=== PATIENT | female | born 1970 | race Caucasian/White ===

== ENCOUNTER 2024-09-03 15:22 | Inpatient (IN) | payer MEDICAID, OTHER ==
[~2024-09-03] VITALS: Ht 190.5 cm; Wt 125.3 kg
--- NOTE | 2024-09-03 15:51 | ED.PDOC ---
GI ASSESSMENT HPI Comments This is a 54 year old female accompanied by mother presenting to the ED with chief complaint of constipation. Patient reports that she has been constipated for the past week with associated 8/10 abdominal pain, fever, chills, pressure- like dysuria, inability to void completely, and rectal bleeding after attempting to make a bowel movement today. Patient denies any nausea, vomiting, diarrhea, chest pain, SOB, hematuria, flank pain, or dizziness. Chief Complaint: Abdominal Pain Time Seen by MD: 15:46 Reviewed Notes: Nurses Notes, Medications, Allergies Allergies: Coded Allergies: Codeine (Verified Allergy, Unknown, 09/03/24) Information Source: Patient, Relative (Mother) Mode of Arrival: Ambulatory Timing: Days Duration: Since onset Prehospital treatment: None Quality: Aching Vomitus: None Stool: Impaction, Blood Streaked Severity: Moderate Recent: None Recent Hx of: None Pain Location: Diffuse Modifying Factors: Nothing Associated sign and symptoms: Constipation, Abdominal Pain Past Medical History PAST MEDICAL HISTORY: Denies Surgical History: Surgical History (Other): Tummy Tuck, Rt femur surgery, tracheostomy/removal, PEG tube/removal MASTER BLACK BELT History: No Pertinent MASTER BLACK BELT History Family History Family History: Reviewed,noncontributory to illness, Family hx of Cancer Social History Smoker: Non-Smoker Alcohol: Denies ETOH Use Drugs: Marijuana Lives In: Home Constitutional: reports: chills, fever; denies: diaphoresis, fatigue, malaise, sweats, weakness, others EENTM: denies: blurred vision, double vision, ear bleeding, ear discharge, ear drainage, ear pain, ear ringing, eye pain, eye redness, hearing loss, mouth pain, mouth swelling, nasal discharge, nose bleeding, nose congestion, nose pain, photophobia, tearing, throat pain, throat swelling, voice changes, others Respiratory: denies: cough, hemoptysis, orthopnea, SOB at rest, shortness of breath, SOB with excertion, stridor, wheezing, others Cardiovascular: denies: chest pain, dizzy spells, diaphoresis, Dyspnea on exer tion, edema, irregular heart beat, left arm pain, lightheadedness, palpitations, PND, syncope, others Gastrointestinal: reports: abdominal pain, constipated, rectal bleeding; denies: abdomen distended, blood streaked bowels, diarrhea, dysphagia, difficulty swallowing, hematemesis, melena, nausea, poor appetite, poor fluid intake, rectal pain, vomiting, others Genitourinary: reports: dysuria, others (Inability to void completely); denies: abnormal vagina bleeding, burning, dyspareunia, flank pain, frequency, hematuria, incontinence, pain, , vagina discharge, urgency Neurological: denies: dizziness, fainting, headache, left sided numbness, left sided weakness, numbness, paresthesia, pre-existing deficit, right sided numbness, right sided weakness, seizure, speech problems, tingling, tremors, weakness, others Musculoskeletal: denies: back pain, gout, joint pain, joint swelling, muscle pain, muscle stiffness, neck pain, others Integumetry: denies: bruises, change in color, change in hair/nails, dryness, laceration, lesions, lumps, rash, wounds, others Allergic/Immunocompromised: denies: Difficulty Healing, Frequent Infections, Hives, Itching, others Hematologic/Lymphatic: denies: anemia, blood clots, easy bleeding, easy bruising, swollen glands, others Endocrine: denies: excessive hunger, excessive sweating, excessive thirst, excessive urination, flushing, intolerance to cold, intolerance to heat, unexplained weight gain, unexplained weight loss, others Psychiatric: denies: anxiety, bipolar disorder, depression, hopeless, panic disorder, schizophrenia, sleepless, suicidal, others All Other Systems: Reviewed and Negative Physical Exam General Appearance: Moderate Distress, Obese HEENT: Normal ENT Inspection, Pharynx Normal, TMs Normal Neck: Full Range of Motion, Non-Tender, Normal, Normal Inspection Respiratory: Chest Non-Tender, Lungs Clear, No Accessory Muscle Use, No Respiratory Distress, Normal Breath Sounds Cardiovascular: No Edema, No JVD, No Murmur, No Gallop, Normal Peripheral Pulses, Regular Rate/Rhythm Breast Exam: Deferred Gastrointestinal: No Organomegaly, No Pulsatile Mass, Normal Bowel Sounds, Soft, Suprapubic, Tenderness Genitalia: Deferred Pelvic: Deferred Rectal: Deferred Extremities: No calf tenderness, Normal capillary refill, Normal inspection, Normal range of motion, Non-tender, No pedal edema Musculoskeletal : Apperance: Normal 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 Was a procedure done?: No GI differential Dx Differential Diagnosis: Appendicitis, Gastritis/PUD, Gastroenteritis, Inflammatory BD, Pancreatitis, UTI, Urolithiasis, Electrolyte Imbalance, Food Poisoning X-Ray, Labs, Meds, VS Vital Signs Date Time Temp Pulse Resp B/P (MAP) Pulse Ox O2 Delivery O2 Flow Rate FiO2 09/03/24 15:49 99.8 117 14 120/67 (84) 95 99.8 Lab Test 09/03/24 16:11 09/03/24 15:56 Range/Units White Blood Count 14.0 H 4.4-10.8 10^3/uL Red Blood Count 5.12 4.0-5.20 10^6/uL Hemoglobin 15.2 12.2-16.2 g/dL Hematocrit 45.7 36.0-46.0 % Mean Corpuscular Volume 89.2 80.0-100.0 fL Mean Corpuscular Hemoglobin 29.6 28.0-32.0 pg Mean Corpuscular Hemoglobin Concent 33.2 32.0-36.0 g/dL Red Cell Distribution Width 15.5 H 11.8-14.3 % Platelet Count 360 140-450 10^3/uL Mean Platelet Volume 8.2 6.9-10.8 fL Neutrophils (%) (Auto) 73.1 37.0-80.0 % Lymphocytes (%) (Auto) 14.8 10.0-50.0 % Monocytes (%) (Auto) 11.4 0.0-12.0 % Eosinophils (%) (Auto) 0.3 0.0-7.0 % Basophils (%) (Auto) 0.4 0.0-2.0 % Neutrophils # (Auto) 10.2 H 1.6-8.6 10 ^3/uL Lymphocytes # (Auto) 2.1 0.4-5.4 10 ^3/uL Monocytes # (Auto) 1.6 H 0-1.3 10 ^3/uL Eosinophils # (Auto) 0 0-0.8 10 ^3/uL Basophils # (Auto) 0.1 0-0.2 10 ^3/uL Nucleated Red Blood Cells 0.2 % Sodium Level 139 136-145 mmol/L Potassium Level 4.2 3.5-5.1 mmol/L Chloride Level 105 98-107 mmol/L Carbon Dioxide Level 25 20-31 mmol/L Anion Gap 9 5-15 Blood Urea Nitrogen 16 9-23 mg/dL Creatinine 1.14 H 0.550-1.02 mg/dL Glomerular Filtration Rate Calc 58 >90 mL/min BUN/Creatinine Ratio 14.0 10.0-20.0 Serum Glucose 110 H 74-106 mg/dL Calcium Level 10.4 8.7-10.4 mg/dL Urine Color Light-orange Yellow Urine Clarity Ex.turbid Clear Urine pH 5.5 5.0-9.0 Urine Specific [place] 1.014 1.001-1.035 Urine Protein 2+ H Negative Urine Ketones Negative Negative Urine Blood 2+ H Negative /uL Urine Nitrite 2+ H Negative Urine Bilirubin Negative Negative Urine Urobilinogen Normal Negative mg/dL Urine Leukocyte Esterase 3+ Negative /uL Urine RBC 25 0 - 4 /hpf Urine WBC Clumps Present None Seen /hpf Urine Microscopic WBC 2674 H 0-5 /HPF Urine Squamous Epithelial Cells Few <5 /hpf Urine Bacteria Few H None Seen /hpf Urine Mucus Few None Seen Urine Glucose Normal Normal mg/dL CT Abd/Pel indicates: Trace right hydro nephrosis with minimal wall thickening of the right renal pelvis and mild fat stranding adjacent to the right kidney, right renal pelvis and proximal right ureter. Correlate for possible infectious process. Trace left-sided hydro nephrosis. Minimal pancolonic wall thickening with submucosal fatty infiltration of the terminal ileum. Correlate for colitis with the possibility of chronic inflammatory bowel disease. The patient's urine test is positive for a significant UTI The patient's CBC shows an elevated white blood cell count of 14.0 The patient's chemistry panel shows a creatinine of 1.14 The diagnosis is acute pyelonephritis The patient is being admitted at this time The patient was given Rocephin 1 g IV piggyback Images Reviewed?: Images reviewed and evaluated by me Time of 1ST Reevaluation: 18:00 Reevaluation 1ST: Unchanged Patient Education/Counseling: Diagnosis, Treatment, Prognosis Family Education/Counseling: Diagnosis, Treatment, Prognosis Additional Information Reviewed patient's previous visit(s): None The following tests were ordered, and results were reviewed by me: CT Abd/Pel, CBC, BMP, Additional information was gathered from interviewing the following independent historian: Mother I reviewed and agreed with the following test results read by other provider: CT Abd/Pel I discussed treatments and results with medical personnel and: Patient and mother Comprehensive systems review obtained and negative except for what is stated in the HPI. SEPSIS Sepsis Screen Physician Orders Ct Ab Pel Wo Con-No Oral Or Iv (09/03/24 15:52) Heplock Iv (09/03/24 17:27) Data Lead (09/03/24 17:27) Blood Pressure (09/03/24 17:27) Pulse Oximetry (09/03/24 17:27) Sodium Chloride 0.9% (09/03/24 17:30) Ceftriaxone 1gm/50ml D5w (Rocephin) (09/03/24 17:30) Vital Signs Date Time Temp Pulse Resp B/P (MAP) Pulse Ox O2 Delivery O2 Flow Rate FiO2 09/03/24 15:49 99.8 117 14 120/67 (84) 95 99.8 Laboratory Tests Test 09/03/24 16:11 White Blood Count 14.0 10^3/uL (4.4-10.8) H Departure 1 Departure Time of Disposition: 17:59 Impression: Primary Impression: Acute abdominal pain Additional Impression: Acute pyelonephritis Disposition: ADMITTED INPATIENT Admit to: Med Surg Condition: Fair Critical Care Note Critical Care Time?: No Stability Stability form required: Yes Unstable for transfer: ED Physician Assesment (Clinical assesment) Heart Score Heart Score: Heart Score Response (Comments) Value History N/A 0 EKG N/A 0 Age N/A 0 Risk Factors N/A 0 Troponin N/A 0 Total 0 I personally scribed for NETTIE PRIEST MD ([email or web address]) on 09/03/24 at 15:51. Electronically submitted by Higinio Mandel ([email or web address]). I personally scribed for NETTIE PRIEST MD ([email or web address]) on 09/03/24 at 17:06. Electronically submitted by Higinio Mandel ([email or web address]). NETTIE PRIEST MD Sep 03, 2024 15:51
[2024-09-03 16:26] LABS: Urine Protein, UAD 2+ (Negative); Urine WBC Clumps PRESENT /hpf (None Seen)
--- NOTE | 2024-09-03 16:35 | DVH ---
Exam: CT CT AB PEL WO CON-NO ORAL OR IV History: pain Comparison Study: None TECHNIQUE: Multidetector CT of the abdomen and pelvis without IV contrast. Axial, coronal and sagitta l multiplanar reformats were obtained from the axial data set by the technologist. Radiation Dose Information: CT Dose: CTDI volume is 24.91 mGy. Dose-length product is 1495.19 mGy*cm FINDINGS: The lung bases are clear. Partially visualized heart is unremarkable. Mild hepatosplenomegaly with no focal lesions. Otherwise, liver, spleen, gallbladder, pancreas and ad renal glands unremarkable. Subcentimeter hypodense left renal lesion that is too small to characterize. Slight asymmetric mild r ight-sided perinephric fat stranding. Trace bilateral hydro nephrosis with minimal wall thickening of the right renal pelvis and mild fat stranding adjacent to the right renal pelvis and right proximal ureter. No obstructing calculus is noted. Limited evaluation of the urinary bladder due to decompress ed state. Uterus and adnexa unremarkable. Mild gastric wall thickening which is most likely from inadequate distension. Mild submucosal fatty i nfiltration of the terminal ileum. The small bowel loops are otherwise unremarkable. Appendix is not definitely visualized. Minimal pancolonic wall thickening. No evidence of intraperitoneal free air or free fluid. No evidence of aortic aneurysm. Mild Nonspecific fat stranding adjacent to the proximal celiac and SM A. 0.8 cm short axis right sided retroperitoneal slightly prominent lymph node which may be reactive. Tiny fat containing umbilical hernia. The soft tissues unremarkable. No destructive osseous lesions noted. Sclerotic focus of the left proximal femur and right pelvic bone which may represent bone latesha nds. Intramedullary cristela and screw fixation of the right proximal femur. IMPRESSION: Trace right hydro nephrosis with minimal wall thickening of the right renal pelvis and mild fat stran ding adjacent to the right kidney, right renal pelvis and proximal right ureter. Correlate for possi ble infectious process. Trace left-sided hydro nephrosis. Minimal pancolonic wall thickening with submucosal fatty infiltration of the terminal ileum. Correla te for colitis with the possibility of chronic inflammatory bowel disease.
[2024-09-03 16:36] LABS: Hematocrit 45.7 % (36.0-46.0); Hemoglobin 15.2 g/dL (12.2-16.2); Mean Corpuscular Hemoglobin 29.6 pg (28.0-32.0); Mean Corpuscular Volume 89.2 fL (80.0-100.0); Nucleated Red Blood Cells % 0.2 %
[2024-09-03 16:58] LABS: Chloride 105 mmol/L (98-107); Potassium 4.2 mmol/L (3.5-5.1); Sodium 139 mmol/L (136-145)
[2024-09-03 16:59] LABS: Anion Gap 9 (5-15); Carbon Dioxide 25 mmol/L (20-31)
[2024-09-03 17:00] LABS: Calcium 10.4 mg/dL (8.7-10.4)
[2024-09-03 17:05] LABS: Glucose 110 mg/dL (74-106)
[2024-09-03 17:43] LABS: BUN/Creatinine Ratio 14.0 (10.0-20.0); Blood Urea Nitrogen 16 mg/dL (9-23)
[2024-09-03] MEDS ORDERED: ONDANSETRON HCL 4 MG/2 ML VIAL IV PRN (19:45)
[2024-09-03] MEDS ORDERED: HYDROcodone-ACET 5/325MG TAB PO PRN (19:45)
[2024-09-03] MEDS: cefTRIAXone 1GM/50ML D5W 50 ML IV ONE (19:55)
[2024-09-03] MEDS: SODIUM CHLORIDE 0.9% 1,000 ML IV ONE (19:56)
--- NOTE | 2024-09-04 00:54 | DVHHP2 ---
History of Present Illness Reason for Visit: Flank pain History of Present Illness 54-year-old female presents for evaluation of flank pain. Patient reports a two day history of lower abdominal pain that radiates to bilateral flank. Reports occasional chills. No dysuria or hematuria. No other acute complaints re ported. Past Medical History Denies Past Surgical History , right femur surgery, tracheostomy/remove Family History Noncontributory Smoke: No ALCOHOL: none Drugs: Marijuana Lives: with Family Review of Systems Review of Systems Review of systems are currently negative otherwise addressed in HPI. Allergies: Coded Allergies: Codeine (Verified Allergy, Unknown, 09/03/24) Medications Current Medications Medications Dose Ordered Sig/Karen Route Start Time Stop Time Status Last Admin Dose Admin Ceftriaxone Sodium 50 ml @ 100 mls/hr DAILY@09 IV 09/04/24 09:00 Acetaminophen/ Hydrocodone Bitart 1 tab Q4HP PRN PO 09/03/24 19:45 Ondansetron HCl 4 mg Q4HP PRN IV 09/03/24 19:45 Acetaminophen 650 mg Q6HP PRN PO 09/03/24 19:45 Exam Vital Signs Vital Signs Date Time Temp Pulse Resp B/P (MAP) Pulse Ox O2 Delivery O2 Flow Rate FiO2 09/04/24 00:05 99.0 94 24 111/57 (75) 97 99.0 Exam Gen: 54-year-old female in mild distress Skin: Warm, dry, normal color and texture, no rash. HEENT: Normocephalic atraumatic, mucous membranes moist and pink. Neck: Cervical and supraclavicular nodes normal without enlargement, trachea is midline, thyroid gland is normal without masses. Pulmonary: Clear to auscultation and percussion bilaterally. Cardiac: Regular rate and rhythm. No murmur Abdomen: Soft, nontender, nondistended, bowel sounds present all 4 quadrants, no guarding, no rigidity, no organomegaly. Extremities: No cyanosis, clubbing, no edema Neuro: Cranial nerves II through XII grossly intact, normal affect and speech, no focal motor deficits. Labs/Xrays ORDERING PHYSICIAN: NETTIE PRIEST MD PROCEDURE(s): ABPL - CT AB PEL WO CON-NO ORAL OR IV REASON: pain ORDER NUMBER(s): [id number], ACCESSION NUMBER(s): [id number] Exam: CT CT AB PEL WO CON-NO ORAL OR IV History: pain Comparison Study: None TECHNIQUE: Multidetector CT of the abdomen and pelvis without IV contrast. Axial, coronal and sagittal multiplanar reformats were obtained from the axial data set by the technologist. Radiation Dose Information: CT Dose: CTDI volume is 24.91 mGy. Dose-length product is 1495.19 mGy*cm FINDINGS: The lung bases are clear. Partially visualized heart is unremarkable. Mild hepatosplenomegaly with no focal lesions. Otherwise, liver, spleen, gallbladder, pancreas and adrenal glands unremarkable. Subcentimeter hypodense left renal lesion that is too small to characterize. Slight asymmetric mild right-sided perinephric fat stranding. Trace bilateral hydro nephrosis with minimal wall thickening of the right renal pelvis and mild fat stranding adjacent to the right renal pelvis and right proximal ureter. No obstructing calculus is noted. Limited evaluation of the urinary bladder due to decompressed state. Uterus and adnexa unremarkable. Mild gastric wall thickening which is most likely from inadequate distension. Mi ld submucosal fatty infiltration of the terminal ileum. The small bowel loops are otherwise unremarkable. Appendix is not definitely visualized. Minimal pancolonic wall thickening. No evidence of intraperitoneal free air or free fluid. No evidence of aortic aneurysm. Mild Nonspecific fat stranding adjacent to the proximal celiac and SMA. 0.8 cm short axis right sided retroperitoneal slightly prominent lymph node which may be reactive. Tiny fat containing umbilical hernia. The soft tissues unremarkable. No destructive osseous lesions noted. Sclerotic focus of the left proximal femur and right pelvic bone which may represent bone islands. Intramedullary cristela and screw fixation of the right proximal femur. IMPRESSION: Trace right hydro nephrosis with minimal wall thickening of the right renal pelvis and mild fat stranding adjacent to the right kidney, right renal pelvis and proximal right ureter. Correlate for possible infectious process. Trace left-sided hydro nephrosis. Minimal pancolonic wall thickening with submucosal fatty infiltration of the terminal ileum. Correlate for colitis with the possibility of chronic inflamma tory bowel disease. Labs Test 09/03/24 19:42 09/03/24 16:11 09/03/24 15:56 Range/Units Lactic Acid Level 1.2 0.4-2.0 mmol/L White Blood Count 14.0 H 4.4-10.8 10^3/uL Red Blood Count 5.12 4.0-5.20 10^6/uL Hemoglobin 15.2 12.2-16.2 g/dL Hematocrit 45.7 36.0-46.0 % Mean Corpuscular Volume 89.2 80.0-100.0 fL Mean Corpuscular Hemoglobin 29.6 28.0-32.0 pg Mean Corpuscular Hemoglobin Concent 33.2 32.0-36.0 g/dL Red Cell Distribution Width 15.5 H 11.8-14.3 % Platelet Count 360 140-450 10^3/uL Mean Platelet Volume 8.2 6.9-10.8 fL Neutrophils (%) (Auto) 73.1 37.0-80.0 % Lymphocytes (%) (Auto) 14.8 10.0-50.0 % Monocytes (%) (Auto) 11.4 0.0-12.0 % Eosinophils (%) (Auto) 0.3 0.0-7.0 % Basophils (%) (Auto) 0.4 0.0-2.0 % Neutrophils # (Auto) 10.2 H 1.6-8.6 10 ^3/uL Lymphocytes # (Auto) 2.1 0.4-5.4 10 ^3/uL Monocytes # (Auto) 1.6 H 0-1.3 10 ^3/uL Eosinophils # (Auto) 0 0-0.8 10 ^3/uL Basophils # (Auto) 0.1 0-0.2 10 ^3/uL Nucleated Red Blood Cells 0.2 % Sodium Level 139 136-145 mmol/L Potassium Level 4.2 3.5-5.1 mmol/L Chloride Level 105 98-107 mmol/L Carbon Dioxide Level 25 20-31 mmol/L Anion Gap 9 5-15 Blood Urea Nitrogen 16 9-23 mg/dL Creatinine 1.14 H 0.550-1.02 mg/dL Glomerular Filtration Rate Calc 58 >90 mL/min BUN/Creatinine Ratio 14.0 10.0-20.0 Serum Glucose 110 H 74-106 mg/dL Calcium Level 10.4 8.7-10.4 mg/dL Urine Color Light-orange Yellow Urine Clarity Ex.turbid Clear Urine pH 5.5 5.0-9.0 Urine Specific [place] 1.014 1.001-1.035 Urine Protein 2+ H Negative Urine Ketones Negative Negative Urine Blood 2+ H Negative /uL Urine Nitrite 2+ H Negative Urine Bilirubin Negative Negative Urine Urobilinogen Normal Negative mg/dL Urine Leukocyte Esterase 3+ Negative /uL Urine RBC 25 0 - 4 /hpf Urine WBC Clumps Present None Seen /hpf Urine Microscopic WBC 2674 H 0-5 /HPF Urine Squamous Epithelial Cells Few <5 /hpf Urine Bacteria Few H None Seen /hpf Urine Mucus Few None Seen Urine Glucose Normal Normal mg/dL Assessment/Plan Assessment/Plan Assessment Acute pyelonephritis Hydronephrosis Leukocytosis Plan Admit the patient [facility] to the hospitalist Rocehsan Urine bacterial culture pending Pain management Continue treatment per orders Plan discussed with: Patient My Orders Orders - VISHNU OCONNELL Procedure Category Date Status Time Admit ADMIT 09/03/24 Transmitted 19:29 Ceftriaxone 1gm/50ml PHA 09/04/24 In Process D5w (Rocephin) 09:00 Regular Diet DIET 09/04/24 Transmitted Breakfast Urine Bacterial JUSTYN 09/03/24 Uncollected Culture 19:35 Basic Metabolic Panel LAB 09/04/24 Logged 04:00 Hydrocodone-Acet PHA 09/03/24 In Process 5/325mg Tab ([place] 19:45 Ondansetron Hcl PHA 09/03/24 In Process (Zofran) 19:45 Complete Blood Count LAB 09/04/24 Logged 04:00 Condition: Stable BRETT 09/03/24 In Process 19:35 Acetaminophen Tablet PHA 09/03/24 In Process (Tylenol Tablet) 19:45 Bedrest With Bathroom BRETT 09/03/24 In Process Privileg 19:35 Date of Service: Sep 03, 2024 Billing Provider: VISHNU OCONNELL Common Visit Codes: [id number] INP/OBS CARE (MOD) VISHNU OCONNELL Sep 04, 2024 00:54
[2024-09-04] MEDS: ACETAMINOPHEN 325 MG TAB PO PRN (05:24)
[2024-09-04 06:26] LABS: Chloride 105 mmol/L (98-107); Potassium 4.0 mmol/L (3.5-5.1); Sodium 136 mmol/L (136-145)
[2024-09-04 06:27] LABS: Anion Gap 8 (5-15); Calcium 9.0 mg/dL (8.7-10.4); Carbon Dioxide 23 mmol/L (20-31)
[2024-09-04 06:31] LABS: Hematocrit 41.8 % (36.0-46.0); Hemoglobin 13.8 g/dL (12.2-16.2); Mean Corpuscular Hemoglobin 30.0 pg (28.0-32.0); Mean Corpuscular Volume 91.0 fL (80.0-100.0); Nucleated Red Blood Cells % 0.1 %
[2024-09-04 06:32] LABS: BUN/Creatinine Ratio 13.2 (10.0-20.0); Blood Urea Nitrogen 15 mg/dL (9-23)
[2024-09-04 06:35] LABS: Glucose 107 mg/dL (74-106)
[2024-09-04] MEDS: cefTRIAXone 1GM/50ML D5W 50 ML IV SCH (08:42)
[2024-09-04 10:58] VITALS: BP 120/60; PULSE 96; RESP 20; TEMP 98.2; O2SAT 97
[2024-09-04] MEDS ORDERED: LACT10SO3 PO (15:27)
[2024-09-04] MEDS ORDERED: CIPR-173 PO (15:27)
--- NOTE | 2024-09-04 15:32 | DVHDS2 ---
Discharge Summary Date of Admission Sep 03, 2024 at 19:29 Date of Discharge: Sep 04, 2024 Labs/Diagnostic Data: Laboratory Results Test 09/04/24 05:30 09/03/24 19:42 09/03/24 15:56 White Blood Count 11.6 10^3/uL (4.4-10.8) Red Blood Count 4.59 10^6/uL (4.0-5.20) Hemoglobin 13.8 g/dL (12.2-16.2) Hematocrit 41.8 % (36.0-46.0) Mean Corpuscular Volume 91.0 fL (80.0-100.0) Mean Corpuscular Hemoglobin 30.0 pg (28.0-32.0) Mean Corpuscular Hemoglobin Concent 32.9 g/dL (32.0-36.0) Red Cell Distribution Width 15.6 % (11.8-14.3) Platelet Count 305 10^3/uL (140-450) Mean Platelet Volume 8.2 fL (6.9-10.8) Neutrophils (%) (Auto) 70.6 % (37.0-80.0) Lymphocytes (%) (Auto) 18.0 % (10.0-50.0) Monocytes (%) (Auto) 10.7 % (0.0-12.0) Eosinophils (%) (Auto) 0.4 % (0.0-7.0) Basophils (%) (Auto) 0.3 % (0.0-2.0) Neutrophils # (Auto) 8.1 10 ^3/uL (1.6-8.6) Lymphocytes # (Auto) 2.1 10 ^3/uL (0.4-5.4) Monocytes # (Auto) 1.2 10 ^3/uL (0-1.3) Eosinophils # (Auto) 0 10 ^3/uL (0-0.8) Basophils # (Auto) 0 10 ^3/uL (0-0.2) Nucleated Red Blood Cells 0.1 % Sodium Level 136 mmol/L (136-145) Potassium Level 4.0 mmol/L (3.5-5.1) Chloride Level 105 mmol/L (98-107) Carbon Dioxide Level 23 mmol/L (20-31) Anion Gap 8 (5-15) Blood Urea Nitrogen 15 mg/dL (9-23) Creatinine 1.14 mg/dL (0.550-1.02) Glomerular Filtration Rate Calc 58 mL/min (>90) BUN/Creatinine Ratio 13.2 (10.0-20.0) Serum Glucose 107 mg/dL (74-106) Calcium Level 9.0 mg/dL (8.7-10.4) Lactic Acid Level 1.2 mmol/L (0.4-2.0) Urine Color Light-orange (Yellow) Urine Clarity Ex.turbid (Clear) Urine pH 5.5 (5.0-9.0) Urine Specific [place] 1.014 (1.001-1.035) Urine Protein 2+ (Negative) Urine Ketones Negative (Negative) Urine Blood 2+ /uL (Negative) Urine Nitrite 2+ (Negative) Urine Bilirubin Negative (Negative) Urine Urobilinogen Normal mg/dL (Negative) Urine Leukocyte Esterase 3+ /uL (Negative) Urine RBC 25 /hpf (0 - 4) Urine WBC Clumps Present /hpf (None Seen) Urine Microscopic WBC 2674 /HPF (0-5) Urine Squamous Epithelial Cells Few /hpf (<5) Urine Bacteria Few /hpf (None Seen) Urine Mucus Few (None Seen) Urine Glucose Normal mg/dL (Normal) Other Laboratory Tests 09/04/24 05:30 Brief Hx & Hospital Course: History of Present Illness 54-year-old female presents for evaluation of flank pain. Patient reports a two day history of lower abdominal pain that radiates to bilateral flank. Reports occasional chills. No dysuria or hematuria. No other acute complaints reported. Past Medical History Denies Past Surgical History , right femur surgery, tracheostomy/remove Patient with flank pain, left CVA tenderness, tachypneic, tachycardic, febrile, leukocytosis with neutrophilia left shift. Patient admitted for acute pyelonephritis with constipation/intestinal inflammation. Started on ceftriaxone. Urine culture pending. Patient waiting in emergency room , for more than 24 hour and is tired. She wants to sign out AMA. Patient is advised of risks of AMA given her current acute condition. Patient understands and accepts all risks of AMA including . RN informed. Patient we will leave AMA. Advised to have close follow up with PCP. Condition at Discharge: Fair Final Diagnosis/Problems List Sepsis due to below Acute pyelonephritis, with hydronephrosis bilaterally Leukocytosis Neutrophilia Tachycardia Tachypnea Febrile episodes Terminal ileum inflammation IBD possible Constipation, acute on chronic Difficulty urinating, acute urinary obstruction ruled out Discharge Disposition: AMA Discharge Instruct/Medications Scheduled Ciprofloxacin Hcl (Cipro), 1 TAB PO BID Lactulose (Lactulose), 10 GM PO BID Discharge Statement: "Patient was advised to return to the ER or call 911 if any headaches, dizziness, shortness of breath, chest pain, abdominal pain, bleeding, fevers, or worsening of medical condition. Patient was counseled about treatment plan, medications, possible side effects, patientverbalized understanding. All questions were answered to the best of my ability. This discharge took greater then 30 minutes in planning, reviewing documentation, counseling the patient, and discussing with other team members." ASSESSMENT ASSESSMENT Assessment Date of Service: Sep 04, 2024 Billing Provider: HARRIS JOY MD Common Visit Codes: NOT BILLABLE HARRIS JOY MD Sep 04, 2024 15:32
== END 2024-09-04 15:05 | disposition left against medical advice (07) | DRG 720 ==
LOC: ER 15:27 → OVERFLOW 19:29
PROVIDERS: ADMIT Student in an Organized Health Care Education/Training Program; ATTEND Student in an Organized Health Care Education/Training Program
DX: A41.9 Sepsis, unspecified organism (principal); N13.6 Pyonephrosis; Z88.5 Allergy status to narcotic agent; K59.00 Constipation, unspecified; K52.3 Indeterminate colitis; K52.89 Other specified noninfective gastroenteritis and colitis; Z53.29 Procedure and treatment not carried out because of patient's decision for other reasons
CPT/HCPCS: 36415; 74176; 80048; 81001; 83605; 85025; G0378